=== PATIENT | female | born 1995 | race Caucasian/White ===

== ENCOUNTER 2021-03-06 08:08 | Outpatient (CLI) | payer OTHER ==
--- NOTE | 2021-03-06 10:34 | XRAY Report ---
PROCEDURE: Tib/Fib LT INDICATIONS: INJURED LEFT LOWER LEG ROLLER SKATING TECHNIQUE: 2 views of the tibia and fibula were acquired. COMPARISON: None. FINDINGS: Bones: No fractures or dislocations. No suspicious bony lesions. Soft tissues: No suspicious soft tissue calcifications or masses. IMPRESSION: No acute left lower leg fracture or dislocation. No gross soft tissue abnormality. Reviewed by: Terry Platt MD on 03/06/2021 10:32 AM [facility] Approved by: Terry Platt MD on 03/06/2021 10:32 AM [facility] Station ID: [id number]
== END 2021-03-06 23:59 | disposition home or self-care (01) ==
LOC: DI.N 08:08
PROVIDERS: ATTEND Family Medicine
DX: S89.92XA Unspecified injury of left lower leg, initial encounter (principal)